=== PATIENT | female | born 1950 | race Caucasian/White ===

== ENCOUNTER 2022-08-06 09:47 | Emergency (ER) | payer OTHER ==
[2022-08-06 10:16] VITALS: BMI 27.4
[2022-08-06] MEDS ORDERED: SODIUM CHLORIDE 0.9% 500 ML INFUS.BAG IV ONE ×2 (11:44→13:39)
[2022-08-06] MEDS ORDERED: ACETAMINOPHEN 1000 MG/100 ML BAG IVPB ONE (11:44)
[2022-08-06] MEDS ORDERED: ACETAMINOPHEN INJECTION 100 ML IVPB ONE (11:49)
[2022-08-06 12:23] LABS: BASO % 0.6 % (0-2.0); HEMOGLOBIN 15.7 GM/dL (10.7-15.3); LYMPH % 24.5 % (8-40); MCH 31.2 pg (25.7-33.7); MCHC 32.7 g/dl (32.0-36.0); MEAN CELL VOLUME 95.3 fl (80-96); MEAN PLT VOLUME 11.6 fl (7.5-11.1); MONO % 10.8 % (3.8-10.2); NEUT % 64.1 % (42.8-82.8); PLATELET COUNT 167 10^3/uL (134-434); RBC 5.04 M/mm3 (3.60-5.2); RDW 13.8 % (11.6-15.6); WHITE BLOOD COUNT 6.4 K/mm3 (4.0-10.0)
[2022-08-06 12:49] LABS: CALCIUM 9.4 mg/dL (8.5-10.1)
[2022-08-06 12:50] LABS: ALBUMIN 4.1 g/dl (3.4-5.0); BLOOD UREA NITROGEN 11.9 mg/dL (7-18); MAGNESIUM 2.3 mg/dL (1.8-2.4)
[2022-08-06 12:53] LABS: CREATININE 0.9 mg/dL (0.55-1.3)
[2022-08-06 12:54] LABS: BILIRUBIN,TOTAL 0.3 mg/dL (0.2-1)
[2022-08-06 12:55] LABS: TOT PROT 7.9 g/dl (6.4-8.2)
[2022-08-06] MEDS ORDERED: METOCLOPRAMIDE HCL INJECTION 10 MG/2 ML VIAL IVPB ONE (13:37)
[2022-08-06] MEDS ORDERED: METOCLOPRAMIDE HCL INJECTION 10 MG/2 ML VIAL ONE (13:42)
[2022-08-06 14:31] VITALS: RESP 16
[2022-08-06 16:09] VITALS: BP 138/74; PULSE 68; TEMP 98.4
== END 2022-08-06 16:24 | disposition home or self-care (01) ==
LOC: JER 09:47
PROC: 3E033NZ Introduction of Analgesics, Hypnotics, Sedatives into Peripheral Vein, Percutaneous Approach (ICD-10-PCS; principal; 2022-08-06)
PROC: 3E033GC Introduction of Other Therapeutic Substance into Peripheral Vein, Percutaneous Approach (ICD-10-PCS; 2022-08-06)
DX: U07.1 COVID-19 (principal); R51.9 Headache, unspecified
CPT/HCPCS: 0241U-QW; 36415; 71046-TC-FY; 80053; 83735; 84484; 85025; 93005; 93010; 99285-25

== ENCOUNTER 2023-06-17 09:07 | Observation (INO) | payer OTHER ==
[2023-06-17 09:16] VITALS: BMI 27.4
[2023-06-17] MEDS ORDERED: FAMOTIDINE 20 MG/50 ML IVPB 20 MG/50 ML MG IVPB ONE ×2 (09:57→10:00)
[2023-06-17] MEDS ORDERED: MAG HYDROX/AL HYDROX/SIMETH 30 ML UNIT-DOSE CUP ONE (09:57)
[2023-06-17] MEDS ORDERED: ASPIRIN 81 MG CHEWABLE TABLETS PO ONE (10:00)
[2023-06-17] MEDS ORDERED: SODIUM CHLORIDE 0.9% 500 ML INFUS.BAG IV ONE (10:00)
[2023-06-17] MEDS ORDERED: ACETAMINOPHEN 1000 MG/100 ML BAG IVPB ONE (10:00)
[2023-06-17] MEDS ORDERED: MAG HYDROX/AL HYDROX/SIMETH 30 ML UNIT-DOSE CUP PO ONE (10:02)
[2023-06-17] MEDS ORDERED: ASPIRIN 81 MG CHEWABLE TABLETS ONE (10:04)
[2023-06-17] MEDS ORDERED: ACETAMINOPHEN INJECTION 100 ML IVPB ONE (10:05)
[2023-06-17 10:27] LABS: BASO % 0.4 % (0-2.0); EOS % 0.5 % (0-4.5); HEMATOCRIT 46.4 % (32.4-45.2); HEMOGLOBIN 15.2 GM/dL (10.7-15.3); LYMPH % 21.4 % (8-40); MCH 30.9 pg (25.7-33.7); MCHC 32.7 g/dl (32.0-36.0); MEAN CELL VOLUME 94.4 fl (80-96); MEAN PLT VOLUME 11.4 fl (7.5-11.1); MONO % 10.5 % (3.8-10.2); NEUT % 67.2 % (42.8-82.8); PLATELET COUNT 177 10^3/uL (134-434); RBC 4.92 M/mm3 (3.60-5.2); RDW 13.8 % (11.6-15.6); WHITE BLOOD COUNT 10.9 K/mm3 (4.0-10.0)
[2023-06-17 10:28] LABS: URINE APPEARANCE CLEAR; URINE BILIRUBIN NEGATIVE (NEGATIVE); URINE COLOR YELLOW; URINE GLUCOSE (UA) NEGATIVE (NEGATIVE); URINE KETONE NEGATIVE (NEGATIVE); URINE LEUK ESTERASE NEGATIVE (NEGATIVE); URINE NITRITE NEGATIVE (NEGATIVE); URINE PROTEIN NEGATIVE (NEGATIVE); URINE UROBILINOGEN 0.2 mg/dL (0.2-1.0)
[2023-06-17 10:34] LABS: INR 1.1 (0.83-1.09); PROTHROMBIN TIME (PATIENT) 12.8 SEC (9.7-13.0)
[2023-06-17 10:36] LABS: ACTIVATED PTT 32.5 SECONDS (25.2-36.5)
[2023-06-17 10:46] LABS: POTASSIUM 4.7 mmol/L (3.5-5.1)
[2023-06-17 10:48] LABS: CALCIUM 9.3 mg/dL (8.5-10.1)
[2023-06-17 10:49] LABS: ALBUMIN 3.9 g/dl (3.4-5.0); BLOOD UREA NITROGEN 18.9 mg/dL (7-18)
[2023-06-17 10:52] LABS: CREATININE 0.9 mg/dL (0.55-1.3)
[2023-06-17 10:53] LABS: BILIRUBIN,TOTAL 0.5 mg/dL (0.2-1)
[2023-06-17 10:54] LABS: TOT PROT 7.5 g/dl (6.4-8.2)
[2023-06-17 10:57] LABS: N-TERMINAL BNP 151.1 pg/ml (5-125)
[2023-06-17] MEDS ORDERED: PANTOPRAZOLE SODIUM 40 MG VIAL IVPUSH ONE (12:56)
[2023-06-17] MEDS ORDERED: SUCRALFATE 1 GM TABLET (FP) PO ONE (12:57)
[2023-06-17] MEDS ORDERED: SUCRALFATE 1 GM TABLET (FP) ONE (13:04)
[2023-06-17] MEDS ORDERED: PANTOPRAZOLE SODIUM 40 MG VIAL ONE (13:05)
[2023-06-17 13:39] VITALS: TEMP 98.9
[2023-06-17 13:44] VITALS: BP 133/79; PULSE 68; RESP 18
== END 2023-06-17 14:29 | disposition home or self-care (01) ==
LOC: JER 09:07 → JERBED 10:26
PROVIDERS: ADMIT Internal Medicine; ATTEND Internal Medicine
PROC: 3E033NZ Introduction of Analgesics, Hypnotics, Sedatives into Peripheral Vein, Percutaneous Approach (ICD-10-PCS; principal; 2023-06-17)
PROC: 3E033GC Introduction of Other Therapeutic Substance into Peripheral Vein, Percutaneous Approach (ICD-10-PCS; 2023-06-17)
PROC: 3E033NZ Introduction of Analgesics, Hypnotics, Sedatives into Peripheral Vein, Percutaneous Approach (ICD-10-PCS; 2023-06-17)
PROC: 3E0337Z Introduction of Electrolytic and Water Balance Substance into Peripheral Vein, Percutaneous Approach (ICD-10-PCS; 2023-06-17)
DX: K21.9 Gastro-esophageal reflux disease without esophagitis (principal); R07.89 Other chest pain; I25.10 Atherosclerotic heart disease of native coronary artery without angina pectoris; I11.0 Hypertensive heart disease with heart failure; I25.2 Old myocardial infarction; Z95.1 Presence of aortocoronary bypass graft; E78.5 Hyperlipidemia, unspecified
CPT/HCPCS: 0241U-QW; 36415; 71045-TC-FY; 80053; 81003; 83880; 84484; 85025; 85610; 85730; 87086; 93005; 93010; 96365; 96375; 99285-25; G0378

== ENCOUNTER 2023-07-24 10:39 | Emergency (ER) | payer OTHER ==
[2023-07-24 11:26] VITALS: RESP 18; TEMP 98; BMI 27.4
[2023-07-24 12:07] VITALS: BP 121/78; PULSE 69
== END 2023-07-24 14:55 | disposition home or self-care (01) ==
LOC: JERFT 10:39
DX: J06.9 Acute upper respiratory infection, unspecified (principal); B34.9 Viral infection, unspecified; R05.9 Cough, unspecified; R51.9 Headache, unspecified; R09.81 Nasal congestion; R07.89 Other chest pain; M79.10 Myalgia, unspecified site; R11.0 Nausea; R06.02 Shortness of breath; R19.7 Diarrhea, unspecified; Z20.822 Contact with and (suspected) exposure to COVID-19
CPT/HCPCS: 0241U-QW; 71046-TC-FY; 99284-25

== ENCOUNTER 2023-10-29 10:16 | Emergency (ER) | payer OTHER ==
[2023-10-29 10:23] VITALS: PULSE 64; TEMP 99.2; BMI 27.4
[2023-10-29] MEDS ORDERED: ONDANSETRON 4 MG/2 ML VIAL ONE (11:29)
[2023-10-29] MEDS ORDERED: FAMOTIDINE 20 MG/50 ML IVPB 20 MG/50 ML MG IVPB ONE (11:29)
[2023-10-29] MEDS: FAMOTIDINE 20 MG/50 ML IVPB 20 MG/50 ML MG IVPB ONE (11:42)
[2023-10-29] MEDS: ONDANSETRON 4 MG/2 ML VIAL IVPUSH ONE (11:42)
[2023-10-29] MEDS: MAG HYDROX/AL HYDROX/SIMETH -MYLANTA- ORAL SUSPENSION PO ONE (11:42)
[2023-10-29 11:47] LABS: BASO % 0.6 % (0-2.0); EOS % 0.5 % (0-4.5); HEMATOCRIT 41.3 % (32.4-45.2); HEMOGLOBIN 13.8 GM/dL (10.7-15.3); LYMPH % 28.5 % (8-40); MCH 31.9 pg (25.7-33.7); MCHC 33.5 g/dl (32.0-36.0); MEAN CELL VOLUME 95.1 fl (80-96); MEAN PLT VOLUME 10.5 fl (7.5-11.1); NEUT % 59.4 % (42.8-82.8); PLATELET COUNT 146 10^3/uL (134-434); RBC 4.34 M/mm3 (3.60-5.2); RDW 14.2 % (11.6-15.6); WHITE BLOOD COUNT 7.9 K/mm3 (4.0-10.0)
[2023-10-29 12:10] LABS: POTASSIUM 3.8 mmol/L (3.5-5.1)
[2023-10-29 12:12] LABS: ALBUMIN 3.7 g/dl (3.4-5.0); CALCIUM 8.6 mg/dL (8.5-10.1)
[2023-10-29 12:15] LABS: CREATININE 0.9 mg/dL (0.55-1.3)
[2023-10-29 12:18] LABS: BILIRUBIN,TOTAL 0.7 mg/dL (0.2-1)
[2023-10-29] MEDS ORDERED: MAG HYDROX/AL HYDROX/SIMETH 30 ML UNIT-DOSE CUP ONE (13:13)
[2023-10-29] MEDS ORDERED: SUCRALFATE 1 GM TABLET (FP) ONE (13:13)
[2023-10-29] MEDS: SUCRALFATE 1 GM TABLET (FP) PO ONE (13:16)
[2023-10-29 19:00] VITALS: BP 133/67; RESP 16
== END 2023-10-29 19:00 | disposition home or self-care (01) ==
LOC: JER 10:16
PROC: 3E033GC Introduction of Other Therapeutic Substance into Peripheral Vein, Percutaneous Approach (ICD-10-PCS; principal; 2023-10-29)
PROC: 3E033GC Introduction of Other Therapeutic Substance into Peripheral Vein, Percutaneous Approach (ICD-10-PCS; 2023-10-29)
DX: K21.9 Gastro-esophageal reflux disease without esophagitis (principal); R10.13 Epigastric pain; R11.2 Nausea with vomiting, unspecified; R07.2 Precordial pain; Z20.822 Contact with and (suspected) exposure to COVID-19
CPT/HCPCS: 0241U-QW; 36415; 71045-TC-FY; 71260-TC; 74177-TC; 76705-TC; 80053; 83690; 84484; 85025; 93005; 93010; 96365; 96375; 99285-25; Q9967